=== PATIENT | male | born 1980 | race Caucasian/White ===

== ENCOUNTER 2021-09-01 18:13 | Emergency (ER) | payer OTHER, SELFPAY ==
[2021-09-01 18:47] VITALS: BP 169/114; PULSE 95; RESP 18; TEMP 36.3; O2SAT 100
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
[2021-09-01] MEDS: TETANUS,DIPHTHERIA,AC PERTUSSIS ADULT (0.5 ML) BOOSTRIX IM (21:08)
[2021-09-01 21:09] VITALS: BP 140/74; PULSE 88; RESP 18; O2SAT 100
== END 2021-09-01 21:20 | disposition home or self-care (01) ==
PROVIDERS: Emergency Provider Emergency Medicine; PCP Family Medicine
DX: S01.312A Laceration without foreign body of left ear, initial encounter (principal); Z23 Encounter for immunization; V58.5XXA Driver of pick-up truck or van injured in noncollision transport accident in traffic accident, initial encounter
CPT/HCPCS: 12011; 90471; 90715; 99282